=== PATIENT | female | born 1985 | race Hispanic/Latino ===

== ENCOUNTER 2018-10-21 18:08 | Emergency (ER) | payer OTHER ==
--- NOTE | 2018-10-21 18:45 | Emergency Department Report ---
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 No UTD on vaccines. No pmh. About 4 cm in length.
[2018-10-21] MEDS ORDERED: VISTARIL PO ONE (19:53)
[2018-10-21] MEDS ORDERED: IBUPROFEN PO ONE (19:53)
[2018-10-21] MEDS ORDERED: XYLOCAINE 1% MPF 5 mL INFILTRATI ONE (19:54)
--- NOTE | 2018-10-21 20:21 | Emergency Department Report ---
- General Chief Complaint: Wound/Laceration Stated Complaint: CUT ON R LEG Time Seen by Provider: 10/21/18 19:34 Source: patient Mode of arrival: Ambulatory Limitations: No Limitations - History of Present Illness Initial Comments: Patient is a 33-year-old white female with no past medical history who presents to the ED with complaint of acute onset of right lower leg pain due to a bleeding laceration that she sustained after she fell on glass coffee table about 2 hours ago. Patient states that the pain is worse with any ambulation. Patient states that she is slipped in the house and fell through a glass topped coffee table and sustained a laceration on the right lower leg. Patient states that she is not up-to-date on her tetanus vaccinations. Patient denies numbness, tingling, or weakness of her right lower extremity, loss of consciousness, no back pain, nausea, vomiting, dizziness, syncope, chest pain, shortness of breath or neck pain or change in vision. Patient states that the pain is worse with any movement, palpation or any active range of motion. -: Sudden, hour(s) (2), This evening Time: 17:32 Location: other (right lower leg) Extremity Location: Right: Lower Leg (Medial right lower leg) 1 - Bleeding medial right kiwer leg laceration with pain Place: home Patient Tetanus UTD: No (Will be given tetanus booster vaccine) Context: accidental, crush injury (fell through glass-topped coffee table) Associated Symptoms: pain, suspect foreign body present. denies: loss of feeling/numbness, unable to move injured part, weakness followed by dizziness, nausea/vomiting, fever Treatments Prior to Arrival: bandage - Related Data Previous Rx's Medication Instructions Recorded Last Taken Type LORazepam [Ativan] 0.5 mg PO Q6H PRN #15 tablet 03/29/14 Unknown Rx Ondansetron [Zofran] 4 mg PO Q6HR PRN #20 tablet 03/29/14 Unknown Rx Ibuprofen [Motrin] 600 mg PO Q8H PRN #20 tablet 10/21/18 Unknown Rx Sulfamethoxazole/Trimethoprim 1 each PO Q12H #20 tablet 10/21/18 Unknown Rx [Bactrim DS TAB] Allergies Allergy/AdvReac Type Severity Reaction Status Date / Time Latex, Natural Rubber Allergy Rash Verified 03/28/14 20:08 Penicillins Allergy Hives Verified 03/28/14 20:08 ED Review of Systems ROS: Stated complaint: CUT ON R LEG Other details as noted in HPI Comment: All other systems reviewed and negative Constitutional: no symptoms reported. denies: see HPI, chills, fever, weakness Eyes: as per HPI ENT: as per HPI. denies: throat pain, hearing loss Respiratory: no symptoms reported, see HPI. denies: cough, shortness of breath, SOB with exertion Cardiovascular: as per HPI. denies: chest pain, palpitations, syncope Endocrine: no symptoms reported, see HPI. denies: excessive sweating, increased thirst, increased urine Gastrointestinal: as per HPI. denies: abdominal pain, nausea, vomiting, diarrhea Genitourinary: as per HPI, hematuria. denies: urgency Musculoskeletal: as per HPI, other (Painful bleeding right medial lower leg laceration ). denies: back pain, joint swelling, arthralgia Skin: as per HPI, other (Bleeding laceration of medial right lower leg). denies: lesions Neurological: as per HPI. denies: weakness, paresthesias, abnormal gait, vertigo Psychiatric: as per HPI, anxiety Hematological/Lymphatic: as per HPI. denies: easy bleeding, easy bruising, swollen glands ED Past Medical Hx - Past Medical History Previous Medical History?: No Hx Psychiatric Treatment: No - Surgical History Past Surgical History?: No Additional Surgical History: tubal ligation csection - Social History Smoking Status: Current Every Day Smoker Substance Use Type: None - Medications Home Medications: Home Medications Medication Instructions Recorded Confirmed Last Taken Type LORazepam [Ativan] 0.5 mg PO Q6H PRN #15 tablet 03/29/14 Unknown Rx Ondansetron [Zofran] 4 mg PO Q6HR PRN #20 tablet 03/29/14 Unknown Rx Ibuprofen [Motrin] 600 mg PO Q8H PRN #20 tablet 10/21/18 Unknown Rx Sulfamethoxazole/Trimethoprim 1 each PO Q12H #20 tablet 10/21/18 Unknown Rx [Bactrim DS TAB] ED Physical Exam - General Limitations: No Limitations General appearance: alert, in no apparent distress, anxious - Head Head exam: Present: atraumatic, normocephalic, normal inspection - Eye Eye exam: Present: normal appearance, PERRL, EOMI Pupils: Present: normal accommodation - ENT ENT exam: Present: normal exam, normal orophraynx, mucous membranes moist, normal external ear exam - Neck Neck exam: Present: normal inspection. Absent: tenderness, full ROM, lymphaden opathy - Respiratory Respiratory exam: Present: normal lung sounds bilaterally. Absent: respiratory distress, wheezes, rales, chest wall tenderness - Cardiovascular Cardiovascular Exam: Present: regular rate, normal rhythm, normal heart sounds - GI/Abdominal GI/Abdominal exam: Present: soft, normal bowel sounds. Absent: distended, tenderness, guarding, rebound - Extremities Exam Extremities exam: Present: tenderness (right lower leg ), normal capillary refill, calf tenderness - Expanded Lower Extremity Exam Right Knee exam: Present: normal inspection, full ROM Lower Leg exam: Present: full ROM, tenderness (right lower leg due to a bleeding 7 cm laceration), abrasion, laceration (medial right lower leg bleeding 7 cm laceration). Absent: swelling Ankle exam: Present: normal inspection, full ROM Foot/Toe exam: Present: normal inspection, full ROM - Back Exam Back exam: Present: normal inspection, full ROM. Absent: tenderness, CVA tenderness (R), CVA tenderness (L), paraspinal tenderness - Neurological Exam Neurological exam: Present: alert, oriented X3, CN II-XII intact, normal gait, reflexes normal - Psychiatric Psychiatric exam: Present: anxious - Skin Skin exam: Present: warm, dry, normal color - Expanded Skin Exam Expanded Type of lesion: Present: laceration (Bleeding 7 cm right lower leg laceration on medial side), abrasion ED Course Vital Signs 10/21/18 10/21/18 18:36 20:03 Temperature 97.6 F Respiratory 20 22 Rate Blood Pressure 155/88 O2 Sat by Pulse 98 Oximetry - Reevaluation(s) Reevaluation #1: 10/21/18 20:54 The patient is alert and oriented 3, anxious and in no acute distress. Patient was treated for pain in the ED and on reevaluation, pain is well-controlled. - Laceration /Wound Repair Right Lower Medial Leg Wound Location: lower extremity (Medial right lower leg) Wound Length (cm): 7 Wound's Depth, Shape: superficial, linear Wound Explored: contaminated Irrigated w/ Saline (ccs): 8 Betadine Prep?: Yes Anesthesia: 1% Lidocaine Volume Anesthetic (ccs): 5 Wound Debrided: extensive Wound Repaired With: sutures Suture Size/Type: 4:0, proline Number of Sutures: 15 Layer Closure?: No Sterile Dressing Applied?: Yes Progress: Patient tolerated procedure well ED Medical Decision Making - Radiology Data Radiology results: image reviewed (no acute fractures or presence of any foreign objects within the tissues.) interpreted by me: No acute fractures, no foreign bodies in the tissues. - Medical Decision Making Patient presented to the ED for evaluation after she slipped and fell on a glass topped coffee table at home and sustained a medial right lower leg laceration. The right tib-fib x-rays show small fractures or presence of foreign body in the tissues. The laceration wound was cleaned thoroughly and appropriately sutured, and patient tolerated the procedure well. Patient was discharged home on medications and advised to follow-up with her primary care physician in 7-10 days for reevaluation or return to the ED immediately if symptoms get worse. Patient was otherwise advised to either follow up with her primary care physician or return to the ED in 12-14 days for suture removal. - Differential Diagnosis Right leg contusion, Right lower leg laceration, fractured right Tib-Fib Critical care attestation.: If time is entered above; I have spent that time in minutes in the direct care of this critically ill patient, excluding procedure time. ED Disposition Clinical Impression: Contusion of right lower leg, initial encounter Laceration of right lower leg without foreign body Qualifiers: Encounter type: initial encounter Qualified Code(s): S81.811A - Laceration without foreign body, right lower leg, initial encounter Disposition: DC-01 TO HOME OR SELFCARE Is pt being admited?: No Does the pt Need Aspirin: No Condition: Stable Instructions: Laceration (ED), Contusion in Adults (ED) Additional Instructions: TAKE MEDICATIONS WITH FOOD, DRINK PLENTY OF FLUIDS AND FOLLOW UP WITH YOUR PRIMARY CARE PHYSICIAN ADVISED. FOLLOW UP OR RETURN TO THE ED IN 12-14 DAYS FOR SUTURE REMOVAL. OTHERWISE RETURN TO THE ED IMMEDIATELY IF SYMPTOMS GET WORSE. Prescriptions: Sulfamethoxazole/Trimethoprim [Bactrim DS TAB] 1 each PO Q12H #20 tablet Ibuprofen [Motrin] 600 mg PO Q8H PRN #20 tablet PRN Reason: Pain Referrals: MICHAEL DUKES MD [Primary Care Provider] - 3-5 Days Time of Disposition: 21:31 Print Language: MALAY
--- NOTE | 2018-10-21 21:43 | XRay Report ---
PROCEDURE: XR TIBIA FIBULA 2V RT TECHNIQUE: Tibia fibula 2 views HISTORY: FALL - FOREIGN OBJECTS IN TISSUE COMPARISONS: FINDINGS: No acute fracture identified. No dislocation seen. No radiopaque foreign body identified. IMPRESSION: Negative no acute abnormality identified This document is electronically signed by Jarvis Garcia MD., Oct 21 2018 09:41:40 PM ET
[2018-10-21 22:07] VITALS: BP 137/93
[2018-10-21] MEDS ORDERED: TENIVAC IM ONE (22:33)
== END 2018-10-21 22:00 | disposition home or self-care (01) ==
LOC: ED 18:08
DX: S81.811A Laceration without foreign body, right lower leg, initial encounter (principal); F17.200 Nicotine dependence, unspecified, uncomplicated; Z98.51 Tubal ligation status; Z79.899 Other long term (current) drug therapy; Z88.0 Allergy status to penicillin; Z91.040 Latex allergy status; W01.110A Fall on same level from slipping, tripping and stumbling with subsequent striking against sharp glass, initial encounter; Y93.89 Activity, other specified; Y92.019 Unspecified place in single-family (private) house as the place of occurrence of the external cause; Y99.8 Other external cause status
CPT/HCPCS: 90471; 90714; 99283; Q0177

== ENCOUNTER 2019-02-11 14:47 | Inpatient (IN) | payer OTHER ==
[2019-02-11] MEDS ORDERED: MORPHINE IV ONE ×2 (14:56→15:45)
--- NOTE | 2019-02-11 15:04 | Event Note ---
ED Screening Note Date of service: 02/11/19 Time: 14:58 ED Screening Note: 33 y/o female comes in for trauma to right arm s/p falling over a cat. Patient admits to using meth but no today. This initial assessment/diagnostic orders/clinical plan/treatment(s) is/are subject to change based on patients health status, clinical progression and re- assessment by fellow clinical providers in the ED. Further treatment and workup at subsequent clinical providers discretion. Patient/guardian urged not to elope from the ED as their condition may be serious if not clinically assessed and managed. Initial orders include:
[2019-02-11 15:12] LABS: Basophils % (Auto) 0.4 % (0.0-1.8); Eosinophils # (Auto) 0.3 K/mm3 (0.0-0.4); Hematocrit 39.2 % (30.3-42.9); Hemoglobin 13.3 gm/dl (10.1-14.3); Lymphocytes % (Auto) 28.6 % (13.4-35.0); Mean Corpuscular HGB Conc 34 % (30-34); Mean Corpuscular Volume 84 fl (79-97); Monocytes # (Auto) 1.3 K/mm3 (0.0-0.8); Monocytes % (Auto) 12.5 % (0.0-7.3); Platelet Count 274 K/mm3 (140-440); Red Blood Count 4.65 M/mm3 (3.65-5.03); Red Cell Distribution Width 13.5 % (13.2-15.2)
[2019-02-11] MEDS ORDERED: DILAUDID IV ONE ×2 (15:35→19:47)
[2019-02-11] MEDS ORDERED: ZOFRAN IV ONE (15:35)
[2019-02-11 15:36] LABS: Alanine Aminotransferase 39 units/L (7-56); Albumin 3.6 g/dL (3.9-5); BUN/Creatinine Ratio 57; Blood Urea Nitrogen 17 mg/dL (7-17); Calcium 9.8 mg/dL (8.4-10.2); Hemolysis Index 4
[2019-02-11] MEDS ORDERED: NACL 0.9% 1000 ML 1,000 ML IV ONE ×2 (15:36→17:26)
[2019-02-11] MEDS ORDERED: BENADRYL IV ONE (15:36)
--- NOTE | 2019-02-11 15:57 | XRay Report ---
LEFT FOREARM, 2 VIEWS, 02/11/2019 INDICATION / CLINICAL INFORMATION: trauma to right arm. COMPARISON: None available. FINDINGS: No fracture or dislocation. Alignment is normal. No soft tissue abnormality noted. IMPRESSION: Negative exam. Signer Name: Anabel Churchill MD Signed: 02/11/2019 3:53 PM Workstation Name: [id number]
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
--- NOTE | 2019-02-11 16:01 | XRay Report ---
RIGHT HUMERUS, 3 VIEWS, 02/11/2019 INDICATION / CLINICAL INFORMATION: fell with obvious deformity. COMPARISON: None available. FINDINGS: There is a mildly displaced oblique fracture through the mid diaphysis of the right humerus. No addit ional findings noted. IMPRESSION: Oblique fracture involving the mid diaphysis of the humerus with minimal displacement. Signer Name: Anabel Churchill MD Signed: 02/11/2019 3:57 PM Workstation Name: [id number]
[2019-02-11 16:03] LABS: Creatine Kinase MB 1.8 ng/mL (0.0-4.0)
[2019-02-11 16:05] LABS: Bilirubin,Urine NEG (Negative); Blood,Urine NEG (Negative); Color,Urine Yellow (Yellow); Mucus,Urine FEW /HPF; Protein,Urine <15 mg/dL mg/dL (Negative); Urobilinogen,Urine < 2.0 mg/dL (<2.0); WBC,Urine < 1.0 /HPF (0.0-6.0)
--- NOTE | 2019-02-11 16:26 | XRay Report ---
CHEST 1 VIEW 02/11/2019 4:05 PM INDICATION / CLINICAL INFORMATION: hypertension. COMPARISON: None available. FINDINGS: SUPPORT DEVICES: None. HEART / MEDIASTINUM: No significant abnormality. LUNGS / PLEURA: No significant pulmonary or pleural abnormality. No pneumothorax. ADDITIONAL FINDINGS: No significant additional findings. IMPRESSION: No significant abnormality of the chest. Signer Name: Fabrice Sanchez MD Signed: 02/11/2019 4:22 PM Workstation Name: [id number]
[2019-02-11 16:37] LABS: Benzodiazepines Screen,Urine PRESUMPTIVE NEGATIVE; Cocaine Screen,Urine PRESUMPTIVE NEGATIVE; Methadone Screen,Urine PRESUMPTIVE NEGATIVE; Opiate Screen,Urine PRESUMPTIVE NEGATIVE
[2019-02-11 17:08] LABS: Amphetamine Screen,Urine PRESUMPTIVE POSITIVE; Cannabinoid Screen,Urine PRESUMPTIVE POSITIVE
[2019-02-11] MEDS ORDERED: TYLENOL PO PRN (17:23)
[2019-02-11] MEDS ORDERED: ZOFRAN IV PRN (17:23)
[2019-02-11] MEDS ORDERED: SODIUM CHLORIDE FLUSH SYRINGE 10 ML IV PRN (17:23)
[2019-02-11] MEDS ORDERED: NON-FORMULARY (Ondansetron [Zofran Tab] 4 MG) PO PRN (17:23)
[2019-02-11] MEDS ORDERED: ZOFRAN ODT PO PRN (17:25)
[2019-02-11] MEDS ORDERED: APRESOLINE IV PRN (17:26)
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
[2019-02-11] MEDS ORDERED: NACL 0.45% 3,000 ML IV SCH (18:00)
[2019-02-11] MEDS ORDERED: PERCOCET 5/325 ONE (19:14)
[2019-02-11] MEDS: PERCOCET 5/325 PO PRN ×2 (19:15→23:37)
[2019-02-11] MEDS ORDERED: DILAUDID ONE (19:50)
[2019-02-11] MEDS: PEPCID PO SCH (23:37)
[2019-02-11] MEDS: ATIVAN PO PRN (23:37)
[2019-02-12] MEDS ORDERED: MORPHINE IV ONE (05:58)
[2019-02-12] MEDS: NACL 0.45% 1000 ML 1,000 ML IV SCH ×2 (06:00→13:02)
[2019-02-12] MEDS: PEPCID PO SCH ×3 (07:38→22:25)
[2019-02-12] MEDS: ATIVAN PO PRN ×2 (07:38→20:29)
[2019-02-12] MEDS: SODIUM CHLORIDE FLUSH SYRINGE 10 ML IV SCH ×2 (10:00→22:25)
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
[2019-02-12] MEDS: PERCOCET 5/325 PO PRN ×2 (12:55→20:28)
[2019-02-12] MEDS: IBUPROFEN PO PRN (16:00)
[2019-02-13] MEDS: PERCOCET 5/325 PO PRN ×2 (03:54→11:11)
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
[2019-02-13] MEDS: PEPCID PO SCH (09:55)
[2019-02-13] MEDS: IBUPROFEN PO PRN (09:55)
[2019-02-13] MEDS: SODIUM CHLORIDE FLUSH SYRINGE 10 ML IV SCH (09:57)
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
[2019-02-13 12:35] VITALS: BP 143/55
== END 2019-02-13 15:00 | disposition home or self-care (01) | DRG 563 ==
LOC: ED 14:47 → 3B-SURG 17:23
PROVIDERS: ADMIT Internal Medicine; ATTEND Internal Medicine
DX: S42.341A Displaced spiral fracture of shaft of humerus, right arm, initial encounter for closed fracture (principal); F11.20 Opioid dependence, uncomplicated; E46 Unspecified protein-calorie malnutrition; I10 Essential (primary) hypertension; F17.210 Nicotine dependence, cigarettes, uncomplicated; F15.10 Other stimulant abuse, uncomplicated; F12.20 Cannabis dependence, uncomplicated; F41.9 Anxiety disorder, unspecified; W06.XXXA Fall from bed, initial encounter; Y93.89 Activity, other specified; Y92.193 Bedroom in other specified residential institution as the place of occurrence of the external cause; Y99.8 Other external cause status; Z98.51 Tubal ligation status; Z88.0 Allergy status to penicillin; Z91.040 Latex allergy status; Z68.21 Body mass index [BMI] 21.0-21.9, adult
CPT/HCPCS: 36415; 71045; 80053; 80307; 81001; 82550; 82553; 85025; 93005; 93010; 96361; 96374; 96375; 99406; G0378; J1170; J1200; J2270; J2405; J7030